=== PATIENT | female | born 1995 | race Caucasian/White ===

== ENCOUNTER 2017-12-17 03:44 | Emergency (ER) | payer BC, SELFPAY ==
[2017-12-17 03:44] VITALS: BP 143/95; PULSE 68; RESP 18; TEMP 36.7; O2SAT 100; BMI 33.4
--- NOTE | 2017-12-17 03:54 | ED.VISSUMM ---
- ER Visit Summary Date of Service: 12/17/17 Chief Complaint: [] Presents with a broken tooth. Her left wisdom tooth broke yesterday morning when she woke up she felt like she had grinding her teeth and broke her tooth. She is having sharp pain in that tooth. Using ibuprofen. Has broken teeth before secondary to grinding. She cannot get the pain to calm down. Current severity is moderate. It is a sharp pain in the left face. No swelling. History of Present Illness: The patient is a 22 F [] see above Physical Examination: [] Vital signs reviewed General: Well-nourished well-developed Head: Normocephalic atraumatic Dental: Left posterior molar has a Dailey 2 chip fracture. No swelling. Gums normal Eyes: Pupils equal round and reactive to light extraocular movements intact ENT: TMs clear no hemotympanum no trauma Neck: Nontender full range of motion Cardiovascular: Regular rate rhythm no murmurs normal S1-S2 Respiratory: No distress clear to auscultation bilaterally chest nontender Abdomen: Soft nontender nondistended normal bowel sounds no masses Back: Nontender no CVA tenderness Extremities: Nontender active range of motion ?4 extremities no trauma Skin: Normal color no trauma Neuro alert oriented cranial nerves II through XII intact normal strength sensation reflexes Test Results: [] Emergency Department Course and Treatment: [] Tooth was covered with [place]. Given 1 Percocet. I do not think she needs antibiotics. Given It for home. Will follow-up as an outpatient Treatment Plan: [] Disposition: [] Impression: [] Left molar dental fracture This note was generated with [employer] dictation software. It may contain incorrect words, spelling, and punctuation that were not noted in review of the chart prior to signing ED Disposition - Plan for ED Patient: Chief Complaint: Dental Referrals: Jair Cole MD [Primary Care Provider] -
--- NOTE | 2017-12-17 03:56 | ED.DEP ---
ED Disposition - Plan for ED Patient: Disposition: Home or Assisted Living Chief Complaint: Dental Instructions: ED Fx Tooth Referrals: Jair Cole MD [Primary Care Provider] - Dentist,Your [STAFF PHYSICIAN] -
[2017-12-17] MEDS: HYDROcodone Bitartrate/Apap 5/325 Tablet PO (04:08)
[2017-12-17 04:09] VITALS: RESP 16
== END 2017-12-17 04:16 | disposition home or self-care (01) ==
LOC: ED 04:03
PROVIDERS: Emergency Provider Emergency Medicine
DX: S02.5XXA Fracture of tooth (traumatic), initial encounter for closed fracture (principal); X58.XXXA Exposure to other specified factors, initial encounter; Y93.9 Activity, unspecified; Y92.9 Unspecified place or not applicable
CPT/HCPCS: 99283

== ENCOUNTER 2019-04-16 15:00 | Outpatient (RCR) | payer OTHER, BC, SELFPAY ==
[2019-03-12 17:15] VITALS: BMI 33.4
[2019-03-26 17:18] VITALS: BMI 33.4
--- NOTE | 2019-03-28 17:48 | HP.OTEVAL_ITS ---
Patient's Visit Information CANELO LOCKWOOD is a 24 year old F, referred to Occupational Therapy by SUHAIL Hernandez, with a diagnosis of synovitis and tenosynovitis. Date of Evaluation: 03/28/19 Occupational Therapist: Beckie Delacruz - Subjective Subjective: Pt seen for initial occupational therapy evaluation for bilateral synovitis and tenosynovitis. Pt states she started to have symptoms in November 2018 pins and needles, aching. 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 R hand dominent. Pt states her pain aching is worse in R hand and needles switches between L and R hands. Litacane rub for on hands, CR bracelets bilateral wrists, copper compression gloves, wears store bought splints bilateral wrists at night. - Pain L UE 2 Pain Intensity Range: 1, 8 R UE 4 Pain Intensity Range: 1, 8 - Objective Objective/Observation: increased pain with movement. 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 - Sensation Sensation Comments: Pins and needles feeling R thumb, IF, MF. Pins and needles feeling L thumb, IF, MF - Quick DASH-Disab of Arm,Shoulder& Hand Quick DASH Score: 40.9075 - Goals Goal:: Pt will progress w/ BUE strength by 10# to assist w/ opening containers and being able to turn variety of tools indep for job by d/c from OT services. Goal:: Pt will progress w/ R AROM wrist flexion by 10' to increase indep w/ functional living tasks. Goal:: Pt will demo no pain greater than 1/10 bilateral wrists/hands with movement by d/c from OT services. Goal:: Pt will be educated on joint protection bilateral wrists with good understanding and demo 100%x Goal:: Pt will be educated on BUE HEP with good understanding and demo 100%x - Rehabilitation General Assessment: Pt seen for initial occupational therapy evaluation for bilateral synovitis and tenosynovitis. Pt states she started to have symptoms in November 2018 pins and needles, aching. 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 R hand d ominent. Pt states her pain aching is worse in R hand and needles switches between L and R hands. Pt would benefit from direct OT services to increase nathalie hand strength and decrease pain BUE with education HEP and joint protection to return back to work at regular job. Rehabilitation Potential: Good - Anticipated Interventions Anticipated Interventions: A/AAROM/PROM, Strengthening, Edema Control, Massage, Triggerpoint Release, Modalities, Orthoses, Joint Protection/Energy Conservation, Fine Motor Coord/Albert, Education re Diagnosis, Education re Self Massage Techniques, Home Program - Visit Plan Frequency: 3x /Week Duration: 4 Weeks General Plan: increase BUE evaluation assistant strength, decrease nathalie wrist/hand pain, increase AROM R wrist flexion, educate on joint protection, HEP 3x/wk x 4 wks TEXT: Thank you for the opportunity to evaluate your patient. For Medicare and Medicare HMO plans, please review the plan of care and approve it. It will need to be FAXED BACK to us at [phone] for Medicare purposes. Please let me know if there are questions or concerns regarding this plan of care. Physician Signature: Date:
--- NOTE | 2019-04-16 15:31 | HP.OTDCSUM ---
[facility] - OT D/C Summary It has been my pleasure to treat CANELO LOCKWOOD under orders from SUHAIL Hernandez, for the diagnosis of synovitis and tenosynovitis for a total of 7 visit(s). Please see the following information for a summary of their discharge status. 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 L cut out press operator strength 65#. right lateral pinch 12#. left lateral pinch 12#. right tripod pinch 10#. left tripod pinch 14# - Goals Patient Goals: Regain Strength, Decrease Pain, Return to Work, Decrease Swelling/Stiffness, Improve Fine Motor Skills, Use Hand/Wrist/Arm Normally Again, Sleep Better, Decrease Tingling/Numbness, Increase ROM, Resume Hobbies Goal:: Pt will progress w/ BUE strength by 10# to assist w/ opening containers and being able to turn variety of tools indep for job by d/c from OT services. Goal:: Pt will progress w/ R AROM wrist flexion by 10' to increase indep w/ functional living tasks. Goal:: Pt will demo no pain greater than 1/10 bilateral wrists/hands with movement by d/c from OT services. Goal:: Pt will be educated on joint protection bilateral wrists with good understanding and demo 100%x Goal:: Pt will be educated on BUE HEP with good understanding and demo 100%x - Plan Plan: cont w/ prior POC, educate on theraputty exercises for HEP - D/C Information Discharge Comments: pt progressed well in OT and has met goals. pt D/c at this time and is joining [employer] to cont. with healthy lifestyle. If there are questions or concerns regarding this patient's occupational therapy, please fell free to call me at [phone]. Thank you for the referral of this patient. Sincerely, Liliana De La Cruz, OTR/L, CHT
== END 2019-04-16 19:00 | disposition home or self-care (01) ==
LOC: OT 15:00
PROVIDERS: PCP Nurse Practitioner Primary Care; Referring Provider Physician Assistant Surgical; Visit Provider Physician Assistant Surgical
DX: M65.9 Synovitis and tenosynovitis, unspecified (principal)
CPT/HCPCS: 97035; 97110; 97140; 97165; 97166; 97530

== ENCOUNTER → 2019-12-18 | Outpatient (CLI) | payer BC, SELFPAY ==
[2019-04-26 17:11] VITALS: BMI 33.4
== END | disposition home or self-care (01) ==
LOC: LABSPEC 16:43
PROVIDERS: PCP Nurse Practitioner Primary Care; Visit Provider Obstetrics & Gynecology
DX: Z12.4 Encounter for screening for malignant neoplasm of cervix (principal)
CPT/HCPCS: 88175; G0145

== ENCOUNTER → 2020-01-17 | Outpatient (CLI) | payer BC, SELFPAY ==
[2019-04-26 17:11] VITALS: BMI 33.4
[2020-01-20 20:07] LABS: Chlamydia By Nucleic Acid AMP Negative (Negative)
[2020-01-20 21:08] LABS: Gonococcus By Nucleic Acid AMP Negative (Negative)
== END | disposition home or self-care (01) ==
LOC: LABSPEC 15:59
PROVIDERS: PCP Nurse Practitioner Primary Care; Visit Provider Obstetrics & Gynecology
DX: Z11.3 Encounter for screening for infections with a predominantly sexual mode of transmission (principal)
CPT/HCPCS: 87491; 87591

== ENCOUNTER 2021-03-22 10:15 | Outpatient (CLI) | payer OTHER, SELFPAY | END 2021-03-22 23:59 | disposition short-term general hospital (02) | LOC: LABSPEC 10:16 | PROVIDERS: PCP Nurse Practitioner Primary Care; Visit Provider Physician Assistant Surgical | DX: U07.1 COVID-19 (principal) | CPT/HCPCS: 87635; U0003; U0005 ==

== ENCOUNTER → 2021-09-09 | Outpatient (CLI) | payer OTHER, SELFPAY ==
[2021-09-16 17:24] LABS: HPV Reflexed? NOT INDICATED
== END | disposition home or self-care (01) ==
LOC: LABSPEC 10:44
PROVIDERS: PCP Nurse Practitioner Primary Care; Visit Provider Obstetrics & Gynecology
DX: Z12.4 Encounter for screening for malignant neoplasm of cervix (principal)
CPT/HCPCS: 88175; G0145

== ENCOUNTER → 2021-11-05 | Outpatient (CLI) | payer OTHER, SELFPAY ==
[2021-11-05 12:17] LABS: Absolute Lymphocyte Count 1.71 X10^3/uL (0.83-4.51); Absolute Neutrophil Count 1.2 X10^3/uL (2.0-7.7); Basophil# 0.02 X10^3/uL; Basophil% 0.6 % (0-1); Eosinophil# 0.06 X10^3/uL; Eosinophils% 1.7 % (0-5); Hematocrit 40.7 % (37-47); Hemoglobin 13.4 g/dL (12.0-15.0); Lymphocyte # 1.71 X10^3/ul (0.83-4.51); Mean Corp Hgb Conc 32.9 g/dL (32-36); Mean Corpuscular Hgb 31.2 pg (27.0-32.0); Mean Corpuscular Volume 94.7 fL (81-99); Mean Platelet Vol. 10.8 fl (6.2-12.0); Monocyte# 0.48 X10^3/uL; Monocyte% 13.8 % (0-10); NRBC Flagged by Analyzer 0 % (0-5); Neutrophil # 1.22 X10^3/uL (2.7-7.7); Neutrophil % 34.9 % (47-70); Platelet Count 222 K/mm3 (150-450); RBC Distribution Width SD 41.8 fl (35.1-43.9); White Blood Count 3.5 K/mm3 (4.4-11.0)
[2021-11-05 12:47] LABS: ALB/GLOB Ratio 1.2 RATIO (0.9-2.4); AST(SGOT) 11 U/L (15-37); Alanine Aminotransfer ALT/SGPT 21 U/L (13-56); Albumin, Serum 3.7 g/dL (3.2-5.0); Alkaline Phosphatase 69 U/L (45-117); Anion Gap 4 (5-15); BUN 10 mg/dL (7-18); BUN/Creat Ratio 12.3 RATIO (10-20); Calcium,Total 9.1 mg/dL (8.5-10.1); Chloride 110 mmol/L (98-107); Creatinine, Serum 0.81 mg/dL (0.55-1.02); EST Glomerular Filtration Rate 91 mL/min (>60); Est Glom Filt Rate - Afr Amer 110 mL/min (>60); Globulin 3.1 g/dL (2.2-4.2); Glucose 108 mg/dL (74-106); Potassium 4.5 mmol/L (3.5-5.1); Protein, Total 6.8 g/dL (6.4-8.2); Sodium Level 141 mmol/L (136-145); T4 Free Direct 0.95 ng/dL (0.76-1.46); Thyroid Stim Hormone (TSH) 0.87 uIU/mL (0.358-3.74)
== END | disposition home or self-care (01) ==
LOC: BIMLAB 10:48
PROVIDERS: PCP Internal Medicine; Referring Provider Internal Medicine; Visit Provider Internal Medicine
DX: K21.9 Gastro-esophageal reflux disease without esophagitis (principal); K58.9 Irritable bowel syndrome, unspecified
CPT/HCPCS: 36415; 80053; 84439; 84443; 85025